=== PATIENT | male | born 1965 | race African-American/Black ===

== ENCOUNTER 2020-08-15 18:43 | Emergency (ER) | payer OTHER ==
[~2020-08-15] VITALS: Ht 180.3 cm; Wt 109.8 kg
[2020-08-15] MEDS ORDERED: NORCO5 PO (20:22)
[2020-08-15 20:34] VITALS: BP 133/77
== END 2020-08-15 20:30 | disposition home or self-care (01) ==
LOC: ER 18:43
DX: S60.131A Contusion of right middle finger with damage to nail, initial encounter (principal); W23.0XXA Caught, crushed, jammed, or pinched between moving objects, initial encounter; Y93.89 Activity, other specified; Y92.89 Other specified places as the place of occurrence of the external cause; Y99.8 Other external cause status